=== PATIENT | female | born 1995 | race Hispanic/Latino ===

== ENCOUNTER 2016-09-26 14:30 | Emergency (ER) | payer OTHER ==
[~2016-09-26] VITALS: Ht 154.9 cm; Wt 103.2 kg
[2016-09-26 14:38] VITALS: BP 111/75; PULSE 79; RESP 16; O2SAT 96
[2016-09-26 15:12] LABS: APPEARANCE,URINE HAZY (CLEAR,HAZY); COLOR,URINE YELLOW (YELLOW); OCCULT BLOOD,URINE NEGATIVE (NEGATIVE)
--- NOTE | 2016-09-26 15:50 | ED.REPORT ---
HPI-Abd Pain F Under 40 Date of Service Sep 26, 2016 ED Provider: Keith Wilson DO Pt is a 21 y/o female presenting to the ED c/o intermittent, sharp bilateral flank pain with radiation to the abdomen onset 3 days ago. She noticed small amount of bright red blood in her stool today. She c/o associated nausea. Pt denies vomiting, diarrhea, dysuria, urinary frequency, hematuria. She has no history of similar symptoms, hemorrhoids. Nursing Notes Stated Complaint: SHARP STOMACH PAIN, POSS BLOOD IN URINE/POOP Chief Complaint: Female Abdominal Pain Nursing Notes Reviewed: Yes Allergies: Coded Allergies: No Known Allergies (Unverified , 09/26/16) General Time Seen by MD: 15:47 Chief Complaint Abdominal pain Hx Obtained From: Patient Arrived By: Walk-in Sudden in Onset?: No Onset Occurred: 3 days ago Symptom Duration: Intermittent Progression since Onset: Intermittent Location: : Flank left: Flank right Quality: Sharp Radiation: : Abdomen lower: Abdomen upper Severity: Current: No pain currently Severity: Maximum: Moderate Recent Healthcare: No recent doctor visit, No recent hospitalization Similar Sx Previous: No Past Medical History Past Medical History Denies Past Surgical History Denies Smoking History Never Smoker Ambulatory Status Independent Review of Systems GI: Reports: Abdominal pain, Hematochezia, Denies: Diarrhea, Melena Female: Reports: Flank pain Complete sys rev & neg: except as marked. Physical Exam Initial Vital Signs Vital Signs (First) Date Time Temp Pulse Resp B/P Pulse Ox O2 Delivery O2 Flow Rate FiO2 09/26/16 14:38 37.0 79 16 111/75 96 Room Air Initial VS: Reviewed, Vital signs normal Head / Eyes: Atraumatic, Normocephalic ENT: Mucous membranes moist, Conjunctiva normal, No scleral icterus Neck: Supple, Full range of motion Extremities: Vascular intact, Neuro intact, No swelling Skin: Warm, Dry, No cyanosis Neurologic: Alert, Oriented, Nonfocal Psychiatric: Mood/affect normal, Behavior normal, Normal thought content General/Constitutional: Awake, Alert, No acute distress, Well appearing, Well developed, Well hydrated, Well nourished, Cooperative, Not toxic appearing Appearance / Presentation: Positive: Obese Respiratory / Chest: Breath sounds NL, Breath sounds = bilat, No respiratory distress, No rales, No rhonchi, No wheezing, No retractions, No stridor Cardiovascular: Heart rate NL, Regular rhythm, Heart sounds NL, No murmurs Abdomen: Atraumatic, Soft, No guarding, No rebound, BS normoactive, No distention, No palpable mass Tenderness/Guarding/Rebound: Positive: Tender epigastric (mild) Back: Full range of motion, Painless range of motion, No CVA tenderness Rectum / Perineum: Atraumatic, Blood - occult heme -, No gross blood, No discharge, No fecal impaction, No fissures, No hemorrhoids, No lesions, No mass Small anal skin tag Interpretation & Diagnostics Lab Results Interpretation Result Diagram: 09/26/16 1640 09/26/16 1640 Test 09/26/16 14:53 09/26/16 16:40 Urine Color Yellow (YELLOW) Urine Appearance Hazy (CLEAR,HAZY) Urine pH 6.0 (5.0-8.0) Urine Specific Elbe 1.032 (1.003-1.035) Urine Protein Negativemg/dL (NEG,TRACE) Urine Glucose (UA) Negativemg/dL (NEGATIVE) Urine Ketones Negativemg/dL (NEGATIVE) Urine Occult Blood Negative (NEGATIVE) Urine Nitrite Negative (NEGATIVE) Urine Bilirubin Negative (NEGATIVE) Urine Urobilinogen 1.0mg/dL (NORMAL) Urine Leukocyte Esterase Negative (NEGATIVE) Urine RBC 0-2/hpf (0-2) Urine WBC 0-5/hpf (0-5) Urine Epithelial Cells Moderate/hpf (NONE-MOD) Urine Crystals None seen (NONE SEEN) Urine Bacteria Few/hpf (NONE-FEW) Urine Hyaline Casts None/lpf (NONE) Urine Granular Casts None seen (NONE SEEN) Urine Waxy Casts None seen (NONE SEEN) Urine Red Blood Cell Casts None seen (NONE SEEN) Urine White Blood Cell Casts None seen (NONE SEEN) Urine Mucus None seen (None Seen) Urine Trichomonas None seen (NONE SEEN) Urine Yeast None (NONE SEEN) Urinalysis Comment None Urine Culture Reflexed Not indicated White Blood Count 14.2th/mm3 (3.8-10.1) Red Blood Count 4.95mil/mm3 (3.90-5.20) Hemoglobin 14.1g/dL (12.0-15.6) Hematocrit 41.8% (35.0-46.0) Mean Corpuscular Volume 84.4fL (81-100) Mean Corpuscular Hemoglobin 28.5pg (27.0-35.0) Mean Corpuscular Hemoglobin Concent 33.7% (32.0-37.0) Red Cell Distribution Width 13.4% (12.3-15.4) Platelet Count 272bil/L (150-400) Neutrophils (%) (Auto) 70.5% (40-74) Lymphocytes (%) (Auto) 19.7% (14-46) Monocytes (%) (Auto) 8.7% (4-12) Eosinophils (%) (Auto) 0.8% (0-5) Basophils (%) (Auto) 0.1% (0-3) Sodium Level 137mEq/L (134-144) Potassium Level 3.8mEq/L (3.5-5.2) Chloride Level 101mEq/L (97-108) Carbon Dioxide Level 25mmol/L (18-29) Blood Urea Nitrogen 16mg/dL (6-20) Creatinine 0.62mg/dL (0.57-1.00) Estimat Glomerular Filtration Rate 174mL/min (>59) Glucose Level 97mg/dL (60-99) Calcium Level 8.7mg/dL (8.5-10.1) Magnesium Level 2.0mg/dL (1.6-2.6) Total Bilirubin 0.2mg/dL (0.0-1.2) Aspartate Amino Transf (AST/SGOT) 17U/L (0-50) Alanine Aminotransferase (ALT/SGPT) 27U/L (0-32) Alkaline Phosphatase 99U/L (25-150) Total Protein 7.1g/dL (6.4-8.4) Albumin 4.1g/dL (3.4-5.0) Hold Reese Top Tube Received (Received) X-Ray Abdominal Interpretation IMPRESSION: Normal bowel gas pattern. Dictated by: Guy Babin M.D. on 09/26/2016 at 17:37 Approved by: Guy Babin M.D. on 09/26/2016 at 17:37 Study: 4 view Interpretation / Wet Read by: Interpret - Radiologist Re-Eval/Medical Decision Med Decision/Clinical Course 21-year-old female presenting with intermittent vague abdominal pain and some nausea last evening, as well as a small amount of right red blood in her stool, with no associated diarrhea. Labs are normal except for a white count of 14. Her abdominal pain was very mild initially in the epigastric region only and resolved with Toradol. Her vitals have been normal. I considered a CT scan due to belly pain and leukocytosis, but given her mildly tender initial exam, no right lower quadrant tenderness, normal vital signs, and complete resolution of her pain with Toradol I elected to have her follow up for a recheck before the end of the week. UA is unremarkable for UTI. Patient is in understanding and agreement that if her symptoms worsen she should return and she plans to follow up with her PCP. Re-Evaluation/Progress : Time of Eval: 18:27 Patient Status: Condition improved, Moderate relief, Pain improved Re-Evaluation/Progress Note: Pt rechecked. Pain improved after Toradol. Informed pt of plan for discharge. Pt understands and agrees with plan for discharge. F/U instructions and RTER warnings given. All questions addressed. Counseled Regarding: Diagnosis, Lab results, Need for follow-up, When/why to return to ED Discharge & Departure Primary Impression: Abdominal pain Abdominal location: epigastric Qualified Code: R10.13 - Epigastric pain Additional Impressions: Leukocytosis Leukocytosis type: unspecified Qualified Code: D72.829 - Elevated white blood cell count, unspecified Bright red blood per rectum Disposition: Home Discharge Condition All VS Reviewed: Yes Condition: Stable Patient Instructions: Acute Abdominal Pain (ED) Additional Instructions: The cause of your abdominal pain is uncertain at this point but does not seem immanently dangerous. Labs, urine, and abdominal x-ray were reassuring. Take Tylenol or Ibuprofen as directed for pain. Follow-up with your primary care doctor later this week or early next week if symptoms persist. Return to the emergency department if you experience persistent or severe pain, increased bloody stools, high fever, persistent vomiting, or for other concerning symptoms. Referrals: CARLOS REEDER (PCP) Scribe Attestation Portions of this note were transcribed by Rajendra Woodard. I, Dr. Wilson personally performed the history, physical exam and medical decision-making; I reviewed and confirmed the accuracy of the information in the transcribed note. copies to: CARLOS REEDER Gary R DO Sep 26, 2016 15:50 RAJENDRA WOODARD Sep 26, 2016 15:51
[2016-09-26 16:52] LABS: BASOPHILS % (AUTO) 0.1 % (0-3); EOSINOPHILS % (AUTO) 0.8 % (0-5); MONOCYTES % (AUTO) 8.7 % (4-12); Mean Corpuscular Hemoglobin 28.5 pg (27.0-35.0); Mean Corpuscular Volume 84.4 fL (81-100); NEUTROPHILS % (AUTO) 70.5 % (40-74); Platelet Count 272 bil/L (150-400)
--- NOTE | 2016-09-26 17:39 | DRSVH ---
PROCEDURE: X-RAY ACUTE ABDOMINAL SERIES ([id number]) INDICATIONS: abdominal pain TECHNIQUE: One view chest and two views of the abdomen were acquired. COMPARISON: None. FINDINGS: Surgical changes and devices: None. Chest: Lungs are clear. Heart size is normal. No pleural effusions. No pneumoperitoneum. Abdomen: Bowel gas pattern is normal. No suspicious calcifications. Visualized solid organ contour s appear normal. Bones: No suspicious bony lesions. IMPRESSION: Normal bowel gas pattern. Dictated by: Guy Babin M.D. on 09/26/2016 at 17:37 Approved by: Guy Babin M.D. on 09/26/2016 at 17:37
[2016-09-26 18:27] VITALS: BP 117/81; PULSE 62; RESP 17; O2SAT 99
== END 2016-09-26 18:45 | disposition home or self-care (01) ==
LOC: SED 14:30
DX: R10.13 Epigastric pain (principal); D72.829 Elevated white blood cell count, unspecified; K62.5 Hemorrhage of anus and rectum
CPT/HCPCS: 36415; 74022; 80053; 81000; 81025; 83735; 85025; 96372; 99284; J1885